=== PATIENT | male | born 1940 | race Caucasian/White ===

== ENCOUNTER 2023-05-10 07:49 | Outpatient (NON) | payer MEDICARE, SELFPAY ==
[2023-05-10 08:18] LABS: Basophils Absolute Auto 0.06 K/mm3 (0.00-0.10); Eosinophils Absolute Auto 0.31 K/mm3 (0.02-0.50); Eosinophils Percent Auto 5.2 % (1.0-6.0); Hematocrit 42.5 % (37.0-46.0); Hemoglobin 14.5 g/dL (12.4-15.3); Immature Granulocyte Absolute 0.02 K/mm3 (0.00-0.00); Immature Granulocyte Percent A 0.3 % (0.0-0.0); Lymphocytes Absolute Auto 1.24 K/mm3 (1.10-4.50); Lymphocytes Percent Auto 20.8 % (18.0-42.0); Mean Corpuscular HGB Conc 34.1 g/dL (32.0-36.0); Mean Corpuscular Hemoglobin 29.4 pg (27.0-31.0); Mean Corpuscular Volume 86.2 fL (78.0-102.0); Mean Platelet Volume 9.9 fl (8.7-11.0); Monocytes Absolute Auto 0.55 K/mm3 (0.10-0.90); Monocytes Percent Auto 9.2 % (2.0-11.0); Neutrophils Absolute Auto 3.8 K/mm3 (1.7-7.2); Neutrophils Percent Auto 63.5 % (50.0-70.0); Platelet Count Result 176 K/mm3 (150-420); Red Blood Count 4.93 M/mm3 (4.70-6.10); Red Cell Distribution Width 15.2 % (11.6-14.4)
[2023-05-10 08:20] LABS: Appearance Urine Clear (Clear); Bilirubin Urine Negative (Negative); Blood Urine Trace-Intact (Negative); Color Urine Yellow (Yellow); Glucose Urine UA Negative (Negative); Ketones Urine Negative (Negative); Leukocyte Esterase Ur 3+ (Negative); Nitrate Urine Negative (Negative); Protein Urine Trace (Negative); Urobilinogen Urine 0.2 mg/dL (0.2-1.0); pH Urine 8.5 (5.0-8.0)
[2023-05-10 08:23] LABS: Creatinine Urine 28.99 mg/dL (40-278); MALB Creatinine Ratio 184.2 mg/g (0-30); Microalbumin Urine Random 53.4 mg/L
[2023-05-10 08:25] LABS: Hemoglobin A1C 5.4 % (<5.7)
[2023-05-10 08:28] LABS: Add Urine Microscopic? YES; Bacteria Urine 1+ /hpf; RBC Urine 0-2 /hpf (0-2); WBC Urine 16-20 /hpf (0-3)
[2023-05-10 08:40] LABS: Alanine Aminotransferase 17 U/L (16-63); Albumin Level 2.6 g/dL (3.4-5.0); Alkaline Phosphatase 80 U/L (46-116); Anion Gap 6 mmol/L (8-16); Aspartate Amino Transferase 19 U/L (15-37); Blood Urea Nitrogen 15 mg/dL (7-18); Calcium 8.3 mg/dL (8.5-10.1); Carbon Dioxide 26 mmol/L (21-32); Chloride 94 mmol/L (98-108); Estimated Glomerular Filt Rate 45; Free T4 Free Thyroxine 1.15 ng/dL (0.76-1.46); Glucose 71 mg/dL (70-99); Osmolality Calculated 260 mOsm/kg (285-295); Potassium 4.9 mmol/L (3.5-5.1); Sodium 126 mmol/L (136-145); Thyroid Stimulating Hormone 10.04 uIU/mL (0.36-3.74); Total Protein 5.7 g/dL (6.4-8.2)
== END 2023-05-10 07:50 | disposition home or self-care (01) ==
LOC: CHSLAB 07:53
PROVIDERS: PCP Family Medicine; Visit Provider Family Medicine
DX: E11.9 Type 2 diabetes mellitus without complications (principal); R53.81 Other malaise; I42.9 Cardiomyopathy, unspecified; I44.2 Atrioventricular block, complete
CPT/HCPCS: 36415; 80053; 81001; 82043; 83036; 84439; 84443; 85025

== ENCOUNTER 2023-05-13 07:12 | Outpatient (NON) | payer MEDICARE, SELFPAY ==
[2023-05-13 08:07] LABS: Anion Gap 9 mmol/L (8-16); Blood Urea Nitrogen 15 mg/dL (7-18); Calcium 8.5 mg/dL (8.5-10.1); Carbon Dioxide 26 mmol/L (21-32); Chloride 94 mmol/L (98-108); Estimated Glomerular Filt Rate 47; Glucose 81 mg/dL (70-99); Osmolality Calculated 267 mOsm/kg (285-295); Sodium 129 mmol/L (136-145)
[2023-05-13 08:15] LABS: Potassium 5.2 mmol/L (3.5-5.1)
== END 2023-05-13 07:13 | disposition home or self-care (01) ==
PROVIDERS: Visit Provider Family Medicine
DX: I42.9 Cardiomyopathy, unspecified (principal); E11.9 Type 2 diabetes mellitus without complications; E78.5 Hyperlipidemia, unspecified; E03.9 Hypothyroidism, unspecified
CPT/HCPCS: 36415; 80048

== ENCOUNTER 2023-06-11 09:05 | Outpatient (CLI) | payer MEDICARE, SELFPAY ==
--- NOTE | ~2023-06-11 | XR_ITS ---
EXAMINATION: XR shoulder RT min 2V DATE: 06/11/2023 09:42 INDICATION: Right shoulder pain. TECHNIQUE: 4 views of right shoulder were obtained. COMPARISON: None. FINDINGS: There is a comminuted fracture of proximal right humerus. At the surgical neck, the distal fracture fragment demonstrates one shaft width anterior displacement. There is a displaced fracture c omponent involving the greater tuberosity. There are loose bodies in glenohumeral joint. There is mil d osteoarthritis of glenohumeral joint and moderate osteoarthritis of acromioclavicular joint. There are fractures of right fourth and fifth ribs. There is a left chest pacer. IMPRESSION: 1. Comminuted fracture of proximal right humerus, at least three-part. 2. Loose bodies in right glenohumeral joint. 3. Polyarticular osteoarthritis. 4. Age-indeterminate fractures of right fourth and fifth ribs. Reviewed, dictated and finalized at location E. F BUSINESS OFFICER
== END 2023-06-11 09:06 | disposition home or self-care (01) ==
LOC: CHSIMG 09:09
PROVIDERS: PCP Family Medicine; Visit Provider Family Medicine
DX: M25.511 Pain in right shoulder (principal); S42.291A Other displaced fracture of upper end of right humerus, initial encounter for closed fracture; M24.011 Loose body in right shoulder; M19.011 Primary osteoarthritis, right shoulder; S22.31XA Fracture of one rib, right side, initial encounter for closed fracture
CPT/HCPCS: 73030

== ENCOUNTER 2023-06-12 06:37 | Outpatient (NON) | payer MEDICARE, SELFPAY ==
[2023-06-12 07:05] LABS: Appearance Urine Clear (Clear); Basophils Absolute Auto 0.06 K/mm3 (0.00-0.10); Bilirubin Urine Negative (Negative); Blood Urine Negative (Negative); Color Urine Light Yellow (Yellow); Eosinophils Absolute Auto 0.31 K/mm3 (0.02-0.50); Eosinophils Percent Auto 5.2 % (1.0-6.0); Glucose Urine UA Negative (Negative); Hematocrit 41.2 % (37.0-46.0); Hemoglobin 14.4 g/dL (12.4-15.3); Immature Granulocyte Absolute 0.03 K/mm3 (0.00-0.00); Immature Granulocyte Percent A 0.5 % (0.0-0.0); Ketones Urine Negative (Negative); Leukocyte Esterase Ur Negative LEU/UL (Negative); Lymphocytes Absolute Auto 0.88 K/mm3 (1.10-4.50); Lymphocytes Percent Auto 14.8 % (18.0-42.0); Mean Corpuscular Hemoglobin 28.7 pg (27.0-31.0); Mean Corpuscular Volume 82.2 fL (78.0-102.0); Mean Platelet Volume 9.5 fl (8.7-11.0); Monocytes Absolute Auto 0.64 K/mm3 (0.10-0.90); Monocytes Percent Auto 10.8 % (2.0-11.0); Neutrophils Percent Auto 67.7 % (50.0-70.0); Nitrate Urine Negative (Negative); Platelet Count Result 254 K/mm3 (150-420); Protein Urine Negative (Negative); Red Blood Count 5.01 M/mm3 (4.70-6.10); Red Cell Distribution Width 14.8 % (11.6-14.4); Specific Grav Ur <= 1.005 (1.010-1.020); Urobilinogen Urine 0.2 mg/dL (0.2-1.0); White Blood Count 5.9 K/mm3 (4.8-10.8); pH Urine 6.5 (5.0-8.0)
[2023-06-12 07:15] LABS: Add Urine Microscopic? NO
[2023-06-12 07:31] LABS: Alanine Aminotransferase 20 U/L (16-63); Albumin Level 2.4 g/dL (3.4-5.0); Alkaline Phosphatase 105 U/L (46-116); Anion Gap 6 mmol/L (8-16); Aspartate Amino Transferase 23 U/L (15-37); Bilirubin,Total 0.9 mg/dL (0.00-1.00); Blood Urea Nitrogen 26 mg/dL (7-18); Calcium 8.2 mg/dL (8.5-10.1); Carbon Dioxide 27 mmol/L (21-32); Chloride 94 mmol/L (98-108); Estimated Glomerular Filt Rate 57; Glucose 106 mg/dL (70-99); Osmolality Calculated 268 mOsm/kg (285-295); Sodium 127 mmol/L (136-145); Thyroid Stimulating Hormone 8.78 uIU/mL (0.36-3.74); Total Protein 6.1 g/dL (6.4-8.2)
[2023-06-12 11:17] LABS: Free T4 Free Thyroxine 1.12 ng/dL (0.76-1.46)
[2023-06-14 06:00] LABS: Thyroid Peroxidase Antibodies <1 IU/mL (<9)
== END 2023-06-12 06:38 | disposition home or self-care (01) ==
LOC: CHSLAB 06:40
PROVIDERS: Visit Provider Family Medicine
DX: E11.9 Type 2 diabetes mellitus without complications (principal); N40.0 Benign prostatic hyperplasia without lower urinary tract symptoms; I42.9 Cardiomyopathy, unspecified; R79.9 Abnormal finding of blood chemistry, unspecified
CPT/HCPCS: 36415; 80053; 81003; 84439; 84443; 85025; 86376

== ENCOUNTER 2023-06-19 07:48 | Outpatient (NON) | payer MEDICARE, SELFPAY ==
[2023-06-19 08:43] LABS: Alanine Aminotransferase 19 U/L (16-63); Albumin Level 2.5 g/dL (3.4-5.0); Alkaline Phosphatase 104 U/L (46-116); Aspartate Amino Transferase 22 U/L (15-37); Bilirubin Direct 0.4 mg/dL (0-0.2); Bilirubin,Total 0.8 mg/dL (0.00-1.00); Cholesterol 113 mg/dL (0-200); HDL Direct 40 mg/dL (40-60); LDL Cholesterol Calculated 62 mg/dL (<130); Triglycerides 56 mg/dL (0-150)
== END 2023-06-19 07:49 | disposition home or self-care (01) ==
LOC: CHSLAB 07:52
PROVIDERS: PCP Family Medicine; Visit Provider Family Medicine
DX: I42.9 Cardiomyopathy, unspecified (principal); R00.1 Bradycardia, unspecified; E87.8 Other disorders of electrolyte and fluid balance, not elsewhere classified; E78.5 Hyperlipidemia, unspecified; I10 Essential (primary) hypertension; E11.9 Type 2 diabetes mellitus without complications
CPT/HCPCS: 36415; 80061; 80076

== ENCOUNTER 2023-09-03 07:12 | Outpatient (CLI) | payer MEDICARE, SELFPAY ==
[2023-09-03 07:50] LABS: Creatinine Urine 88.99 mg/dL (40-278); MALB Creatinine Ratio 69.7 mg/g (0-30); Microalbumin Urine Random 62.1 mg/L; Sodium Urine Random 17 mmol/L (20-110)
[2023-09-03 08:21] LABS: Anion Gap 9 mmol/L (4-12); Blood Urea Nitrogen 33 mg/dL (7-18); Carbon Dioxide 26 mmol/L (21-32); Chloride 89 mmol/L (98-108); Estimated Glomerular Filt Rate 38; Free T4 Free Thyroxine 0.93 ng/dL (0.76-1.46); Glucose 78 mg/dL (70-99); Osmolality Calculated 264 mOsm/kg (285-295); Potassium 4.9 mmol/L (3.5-5.1); Sodium 124 mmol/L (136-145); Thyroid Stimulating Hormone 17.59 uIU/mL (0.36-3.74)
[2023-09-04 13:03] LABS: Osmolality, Urine 417 mOsm/kg (50-1200)
[2023-09-05 09:49] LABS: Thyroid Peroxidase Antibodies <1 IU/mL (<9)
== END 2023-09-03 07:13 | disposition home or self-care (01) ==
PROVIDERS: PCP Family Medicine; Visit Provider Family Medicine
DX: R94.6 Abnormal results of thyroid function studies (principal); E87.1 Hypo-osmolality and hyponatremia
CPT/HCPCS: 36415; 80048; 82043; 83935; 84300; 84439; 84443; 86376

== ENCOUNTER 2024-01-13 18:38 | Outpatient (CLI) | payer OTHER, SELFPAY ==
[2024-01-13 19:01] LABS: Hematocrit 36.5 % (37.0-46.0); Hemoglobin 12.7 g/dL (12.4-15.3); Mean Corpuscular HGB Conc 34.8 g/dL (32-36); Mean Corpuscular Hemoglobin 30.7 pg (27.0-31.0); Mean Corpuscular Volume 88.2 fL (78.0-102.0); Mean Platelet Volume 8.5 fl (8.7-11.0); Platelet Count Result 192 K/mm3 (150-420); Red Blood Count 4.14 M/mm3 (4.70-6.10); Red Cell Distribution Width 13.6 % (11.6-14.4); White Blood Count 5.4 K/mm3 (4.8-10.8)
[2024-01-13 19:21] LABS: Hemoglobin A1C 5.4 % (<5.7)
[2024-01-13 20:12] LABS: Alanine Aminotransferase 16 U/L (16-63); Albumin Level 3.1 g/dL (3.4-5.0); Alkaline Phosphatase 75 U/L (46-116); Anion Gap 6 mmol/L (4-12); Aspartate Amino Transferase 16 U/L (15-37); Bilirubin,Total 0.4 mg/dL (0.00-1.00); Blood Urea Nitrogen 35 mg/dL (7-18); Calcium 8.6 mg/dL (8.5-10.1); Carbon Dioxide 27 mmol/L (21-32); Chloride 94 mmol/L (98-108); Estimated Glomerular Filt Rate 51; Free T4 Free Thyroxine 0.65 ng/dL (0.76-1.46); Glucose 113 mg/dL (70-99); Osmolality Calculated 273 mOsm/kg (285-295); Potassium 4.8 mmol/L (3.5-5.1); Sodium 127 mmol/L (136-145); Thyroid Stimulating Hormone 15.54 uIU/mL (0.36-3.74); Total Protein 6.8 g/dL (6.4-8.2)
== END 2024-01-13 18:39 | disposition home or self-care (01) ==
PROVIDERS: PCP Family Medicine; Visit Provider Family Medicine
DX: E87.1 Hypo-osmolality and hyponatremia (principal); E11.9 Type 2 diabetes mellitus without complications
CPT/HCPCS: 36415; 80053; 83036; 84439; 84443; 85027

== ENCOUNTER 2024-03-03 15:30 | Outpatient (NON) | payer OTHER, SELFPAY ==
[2024-03-03 15:55] LABS: Add Urine Microscopic? YES; Appearance Urine Clear (Clear); Bilirubin Urine Negative (Negative); Blood Urine Negative (Negative); Color Urine Light Yellow (Yellow); Glucose Urine UA Negative (Negative); Ketones Urine Negative (Negative); Leukocyte Esterase Ur 3+ LEU/UL (Negative); Nitrate Urine Negative (Negative); Protein Urine Negative (Negative); Urobilinogen Urine 0.2 mg/dL (0.2-1.0)
[2024-03-03 15:59] LABS: RBC Urine None seen /hpf (0-2); WBC Urine 31-50 /hpf (0-3)
[2024-03-03 16:00] LABS: Bacteria Urine 2+ /hpf; Squamous Epithelial Cell Urine Occasional /hpf (Few)
[2024-03-03 16:01] LABS: Creatinine Urine 79.09 mg/dL (40-278); MALB Creatinine Ratio 36.9 mg/g (0-30); Microalbumin Urine Random 29.2 mg/L
== END 2024-03-03 15:31 | disposition home or self-care (01) ==
PROVIDERS: Visit Provider Family Medicine
DX: N39.0 Urinary tract infection, site not specified (principal); E11.9 Type 2 diabetes mellitus without complications; N40.0 Benign prostatic hyperplasia without lower urinary tract symptoms
CPT/HCPCS: 81001; 82043; 87086; 87186

== ENCOUNTER 2024-03-04 07:42 | Emergency (ER) | payer OTHER, SELFPAY ==
--- NOTE | ~2024-03-04 | CT_ITS ---
EXAMINATION: CT brain wo con DATE: 03/04/2024 08:22 INDICATION: Left arm numbness TECHNIQUE: Computed tomography (CT) of the head was performed without intravenous contrast. Sagittal and coronal reconstructions were performed. Echo dose Lloyd head The dose-length product was 605.3 3 mGy-cm. COMPARISON: None FINDINGS: No acute intracranial hemorrhage, acute infarction or abnormal extra axial fluid collection. There is mild scattered white matter hypoattenuation consistent with chronic small vessel ischemic disease. S ymmetric prominence of the sulci and ventricles consistent with mild age-appropriate diffuse cerebral volume loss. Ventricles are normal and symmetric. No mass/mass effect. Changes of bilateral intraocu lar lens replacement. The orbits and mastoid air cells are normal. Mild mucosal thickening in the par anasal sinuses. IMPRESSION: 1. Age-related changes including mild diffuse volume loss and mild scattered white matter hypoattenua tion consistent with chronic small vessel ischemic disease. Reviewed, dictated and finalized at location B. T OF APPEALS JUDGE IMPRESSION: 1. Age-related changes including mild diffuse volume loss and mild scattered wh ite matter hypoattenuation consistent with chronic small vessel ischemic diseas e.
--- NOTE | ~2024-03-04 | CT_ITS ---
EXAMINATION: CT cervical spine wo con DATE: 03/04/2024 08:22 INDICATION: Left arm numbness TECHNIQUE: Computed tomography (CT) of the cervical spine was performed without intravenous contrast. Automated exposure control and iterative reconstruction technique were employed. The dose-length pro duct was 330.98 mGy-cm. COMPARISON: None FINDINGS: Straightening of the normal lordosis in the upper cervical spine. Vertebral body heights are normal. No fracture. Severe disc height loss with severe uncovertebral osteoarthritis at C3-C4 through C6-C7. Posterior endplate osteophytes at each of these levels contribute to moderate central canal stenosis at C4-C5 and C5-C6 and mild central canal stenosis at C2-C3, C3-C4 and C6-C7. Severe facet osteoarth ritis on the left at C2-C3 and on the right at C7-T1, fusion across the right C2-C3 facet joint and m ild to moderate osteoarthritis the remaining cervical facet joints. There is moderate neural foramina l stenosis bilaterally at C3-C4 through C5-C6 and mild neural from stenosis at a few of the remaining levels. Atherosclerotic calcifications at the bilateral carotid bulbs. Mild biapical emphysema. IMPRESSION: 1. Severe cervical spondylosis most notable for moderate central canal or neural foraminal stenosis i n the mid cervical spine. Reviewed, dictated and finalized at location B. R MAKING MACHINE OPERATOR IMPRESSION: 1. Severe cervical spondylosis most notable for moderate central canal or neura l foraminal stenosis in the mid cervical spine.
[2024-03-04 07:49] VITALS: BP 135/86; PULSE 73; RESP 14; TEMP 36.6; O2SAT 95
--- NOTE | 2024-03-04 08:00 | ECG_ITS ---
Test Date: 2024-03-04 08:11:31 Measurements Intervals Nora Rate: 69 P: 0 NV: 0 QRS: 267 QRSD: 186 T: 48 QT: 450 QTc: 484 Interpretive Statements ELECTRONIC VENTRICULAR PACEMAKER BASELINE ARTIFACT- II, III, AVR, AVL, AVF, V1 NO FURTHER INTERPRETATION IS POSSIBLE ATYPICAL ECG No previous ECG available for comparison Electronically Signed On 03-04-2024 11:57:58 [employer] HAND by Hari Irwin D.O.
--- NOTE | 2024-03-04 08:40 | ED_ITS ---
HPI - Extremity Injury (Upper) General Chief Complaint: Extremity Injury, Upper Stated Complaint: left hand/arm numbness/weakness Time Seen by Provider: 03/04/24 07:50 Source: patient Mode of arrival: wheelchair Limitations: no limitations History of Present Illness HPI narrative: this is a an 83-year-old half-way patient currently in the half-way for rehab of right shoulder repair. Has a history of diabetes TIAs in the past was sent by the rehab nurse because of left arm numbness. The patient has no neurological deficits and left arm without any weakness. Numbness started early this morning with no other neurological deficits, does have some neck discomfort with movement with some no nausea vomiting no chest pain no shortness of breath no blurry vision no headaches. complaint: injury to: left Onset (ago): hour(s) Other Extremity Injury: Left: shoulder ( numbness without weakness) Handedness: right Severity: mild Related Data Home Medications Medication Instructions Recorded Confirmed fluoxetine 10 mg capsule 10 mg PO DAILY 03/04/24 03/04/24 levothyroxine 100 mcg tablet 100 mcg PO DAILY 03/04/24 03/04/24 lisinopril 10 mg tablet 10 mg PO DAILY 03/04/24 03/04/24 Allergies Allergy/AdvReac Type Severity Reaction Status Date / Time Penicillins Allergy Unknown Verified 03/04/24 09:06 Review of Systems Review of Systems: All systems reviewed & are unremarkable except as noted in HPI and below PMFSH Past Medical History Medical History Diabetes mellitus Exam Const: General: healthy appearing, no acute distress and alert Nutritional Appearance: well nourished Orientation/consciousness: patient oriented x3 Limitations: no limitations HENMT: Head: normal to inspection Eyes: Conjunctivae: conjunctivae normal Pupils: Equal, round and reactive pupils present EOM: EOMs intact bilaterally Direct Ophthalmoscopy: no photophobia Neck: Neck: normal visual inspection, no lymphadenopathy and no meningeal signs Chest: Chest palpation & inspection: normal inspection of the chest Resp: Effort & Inspection: normal respiratory effort Auscultation: clear to auscultation bilaterally Cardio: Rate: regular rate Rhythm: regular rhythm GI: GI Palp: Yes Soft to palpation Auscultation: normal bowel sounds Skin: General skin exam: normal color Rashes: no rashes Neuro: General: patient oriented x3, moves all extremities, no meningeal signs, no focal motor deficits and CN's II-XI intact bilaterally Cranial nerves: Yes Nystagmus not present Speech: normal speech Extrem: General: normal to inspection Course Course Emergency Course: patient has CT scan of the cervical spine performed which shows moderate central canal stenosis with stenosis, with no acute abnormalities CT scan of the brain EKG shows paced rhythm with no acute ST or T changes blood work within normal limits and reviewed with patient. Vital Signs Vital signs: Vital Signs Temperature 36.6 C 03/04/24 07:49 Pulse Rate 73 03/04/24 07:49 Respiratory Rate 14 03/04/24 07:49 Blood Pressure 135/86 03/04/24 07:49 Pulse Oximetry 95 03/04/24 07:49 Oxygen Delivery Room Air 03/04/24 07:49 Temperature 36.7 C 03/04/24 09:20 Pulse Rate 72 03/04/24 09:20 Respiratory Rate 18 03/04/24 09:20 Blood Pressure 131/85 03/04/24 09:20 Pulse Oximetry 95 03/04/24 09:20 Oxygen Delivery Room Air 03/04/24 09:20 MDM - Extremity Injury (Upper) Lab Data 03/04/24 08:28 03/04/24 08:28 Labs: Lab Results 03/04/24 Range/Units 08:28 WBC 5.3 (4.8-10.8) K/mm3 RBC 4.65 L (4.70-6.10) M/mm3 Hgb 13.8 (12.4-15.3) g/dL Hct 39.8 (37.0-46.0) % MCV 85.6 (78.0-102.0) fL MCH 29.7 (27.0-31.0) pg MCHC 34.7 (32-36) g/dL RDW 13.8 (11.6-14.4) % Plt Count 185 (150-420) K/mm3 MPV 9.2 (8.7-11.0) fl Immature Gran % (Auto) 0.2 H (0.0-0.0) % Neut % (Auto) 60.7 (50.0-70.0) % Lymph % (Auto) 25.5 (18.0-42.0) % [place] % (Auto) 9.3 (2.0-11.0) % Eos % (Auto) 3.2 (1.0-6.0) % Baso % (Auto) 1.1 H (0.0-1.0) % Lymph # (Auto) 1.34 (1.10-4.50) K/mm3 [place] # (Auto) 0.49 (0.10-0.90) K/mm3 Eos # (Auto) 0.17 (0.02-0.50) K/mm3 Baso # (Auto) 0.06 (0.00-0.10) K/mm3 Abs Immat Gran (auto) 0.01 H (0.00-0.00) K/mm3 Absolute Neuts (auto) 3.19 (1.70-7.20) K/mm3 Absolute Nucleated RBC 0.00 (0.00-0.00) K/mm3 Nucleated RBC % 0.0 (0-0.0) % PT 11.5 (9.50-12.1) Seconds INR 1.0 APTT 28.4 (23.9-30.70) Sec Sodium 131 L (136-145) mmol/L Potassium 5.4 H (3.5-5.1) mmol/L Chloride 99 (98-108) mmol/L Carbon Dioxide 26 (21-32) mmol/L Anion Gap 6 (4-12) mmol/L BUN 55 H (7-18) mg/dL Creatinine 1.47 H (0.70-1.30) mg/dL Estim Creat Clear Calc 35 ml/min Estimated GFR 46 L (59 - ) Glucose 87 (70-99) mg/dL Calculated Osmolality 286 (285-295) mOsm/kg Calcium 9.0 (8.5-10.1) mg/dL Total Bilirubin 0.6 (0.00-1.00) mg/dL AST 15 (15-37) U/L ALT 13 L (16-63) U/L Alkaline Phosphatase 70 (46-116) U/L Total Protein 7.0 (6.4-8.2) g/dL Albumin 3.0 L (3.4-5.0) g/dL Critical Care Time Critical Care Time Critical Care Time: No Discharge Plan Discharge Clinical Impression: Cervical spinal stenosis Patient Disposition: Home, Self-Care Condition: Stable Instructions: Antibiotic Form, Cervical Spinal Stenosis (ED) Additional Instructions: advised to take medication as prescribed and continue follow ups with primary care physician. Prescriptions: No Action levothyroxine 100 mcg tablet 100 mcg PO DAILY lisinopril 10 mg tablet 10 mg PO DAILY fluoxetine 10 mg capsule 10 mg PO DAILY Follow-up/Referrals: Luis Abel MD [Primary Care Provider] - Time of Disposition: 08:50
[2024-03-04 08:43] LABS: Basophils Absolute Auto 0.06 K/mm3 (0.00-0.10); Basophils Percent Auto 1.1 % (0.0-1.0); Eosinophils Absolute Auto 0.17 K/mm3 (0.02-0.50); Eosinophils Percent Auto 3.2 % (1.0-6.0); Hematocrit 39.8 % (37.0-46.0); Hemoglobin 13.8 g/dL (12.4-15.3); Immature Granulocyte Absolute 0.01 K/mm3 (0.00-0.00); Immature Granulocyte Percent A 0.2 % (0.0-0.0); Lymphocytes Absolute Auto 1.34 K/mm3 (1.10-4.50); Lymphocytes Percent Auto 25.5 % (18.0-42.0); Mean Corpuscular HGB Conc 34.7 g/dL (32-36); Mean Corpuscular Hemoglobin 29.7 pg (27.0-31.0); Mean Corpuscular Volume 85.6 fL (78.0-102.0); Mean Platelet Volume 9.2 fl (8.7-11.0); Monocytes Absolute Auto 0.49 K/mm3 (0.10-0.90); Monocytes Percent Auto 9.3 % (2.0-11.0); Neutrophils Absolute Auto 3.19 K/mm3 (1.70-7.20); Neutrophils Percent Auto 60.7 % (50.0-70.0); Platelet Count Result 185 K/mm3 (150-420); Red Blood Count 4.65 M/mm3 (4.70-6.10); Red Cell Distribution Width 13.8 % (11.6-14.4); White Blood Count 5.3 K/mm3 (4.8-10.8)
[2024-03-04 08:59] LABS: Partial Thromboplastin Time 28.4 Sec (23.9-30.70); Prothrombin Time 11.5 Seconds (9.50-12.1)
[2024-03-04 09:01] LABS: Alkaline Phosphatase 70 U/L (46-116); Anion Gap 6 mmol/L (4-12); Aspartate Amino Transferase 15 U/L (15-37); Bilirubin,Total 0.6 mg/dL (0.00-1.00); Blood Urea Nitrogen 55 mg/dL (7-18); Carbon Dioxide 26 mmol/L (21-32); Chloride 99 mmol/L (98-108); Estimated CRCL calculation 35 ml/min; Estimated Glomerular Filt Rate 46; Glucose 87 mg/dL (70-99); Osmolality Calculated 286 mOsm/kg (285-295); Potassium 5.4 mmol/L (3.5-5.1); Sodium 131 mmol/L (136-145)
[2024-03-04 09:13] LABS: Alanine Aminotransferase 13 U/L (16-63)
[2024-03-04 09:20] VITALS: BP 131/85; PULSE 72; RESP 18; TEMP 36.7; O2SAT 95
== END 2024-03-04 09:20 ==
PROVIDERS: Emergency Provider Emergency Medicine; PCP Family Medicine
DX: M48.02 Spinal stenosis, cervical region (principal); E11.9 Type 2 diabetes mellitus without complications; Z86.73 Personal history of transient ischemic attack (TIA), and cerebral infarction without residual deficits; Z79.899 Other long term (current) drug therapy
CPT/HCPCS: 36415; 70450; 72125; 80053; 85025; 85610; 85730; 93005; 99284

== ENCOUNTER 2024-04-15 08:40 | Outpatient (CLI) | payer OTHER, SELFPAY ==
[2024-04-15 09:05] LABS: Basophils Absolute Auto 0.07 K/mm3 (0.00-0.10); Basophils Percent Auto 1.3 % (0.0-1.0); Eosinophils Absolute Auto 0.17 K/mm3 (0.02-0.50); Eosinophils Percent Auto 3.2 % (1.0-6.0); Hemoglobin 13.4 g/dL (12.4-15.3); Immature Granulocyte Absolute 0.02 K/mm3 (0.00-0.00); Immature Granulocyte Percent A 0.4 % (0.0-0.0); Lymphocytes Absolute Auto 1.57 K/mm3 (1.10-4.50); Mean Corpuscular HGB Conc 34.4 g/dL (32-36); Mean Corpuscular Hemoglobin 29.4 pg (27.0-31.0); Mean Corpuscular Volume 85.5 fL (78.0-102.0); Mean Platelet Volume 8.6 fl (8.7-11.0); Monocytes Absolute Auto 0.42 K/mm3 (0.10-0.90); Neutrophils Absolute Auto 2.99 K/mm3 (1.70-7.20); Neutrophils Percent Auto 57.1 % (50.0-70.0); Platelet Count Result 171 K/mm3 (150-420); Red Blood Count 4.56 M/mm3 (4.70-6.10); Red Cell Distribution Width 14.3 % (11.6-14.4); White Blood Count 5.2 K/mm3 (4.8-10.8)
[2024-04-15 09:55] LABS: Anion Gap 10 mmol/L (4-12); Blood Urea Nitrogen 38 mg/dL (7-18); Calcium 9.1 mg/dL (8.5-10.1); Carbon Dioxide 25 mmol/L (21-32); Chloride 97 mmol/L (98-108); Estimated Glomerular Filt Rate 44; Glucose 108 mg/dL (70-99); Osmolality Calculated 284 mOsm/kg (285-295); Potassium 5.3 mmol/L (3.5-5.1); Sodium 132 mmol/L (136-145); Thyroid Stimulating Hormone 2.42 uIU/mL (0.36-3.74)
[2024-04-16 15:02] LABS: Hemoglobin A1C 5.4 % (<5.7)
== END 2024-04-15 08:41 | disposition home or self-care (01) ==
LOC: CHSLAB 08:45
PROVIDERS: PCP Family Medicine; Visit Provider Family Medicine
DX: I42.9 Cardiomyopathy, unspecified (principal); E87.8 Other disorders of electrolyte and fluid balance, not elsewhere classified; E11.9 Type 2 diabetes mellitus without complications
CPT/HCPCS: 36415; 80048; 83036; 84443; 85025